=== PATIENT | female | born 2000 | race Caucasian/White ===

== ENCOUNTER → 2021-07-25 | Outpatient (CLI) | payer OTHER ==
--- NOTE | 2021-07-25 11:15 | RAD ---
EXAM: Chest, 2 views. HISTORY: Tuberculosis screening. COMPARISON: None. FINDINGS: 2 views of the chest are obtained. There is no infiltrate, pleural effusion or pneumothorax . The heart is normal in size. IMPRESSION: No acute pulmonary finding or evidence of pulmonary tuberculosis. Electronically signed by: Edith Corona MD (07/25/2021 11:13 AM) [id number]
== END ==
LOC: DXRAD 10:53
PROVIDERS: ATTEND Physician Assistant
DX: Z11.1 Encounter for screening for respiratory tuberculosis (principal)
CPT/HCPCS: 71046